=== PATIENT | male | born 1955 | race Caucasian/White ===

== ENCOUNTER 2017-03-22 08:33 | Emergency (ER) | payer SELFPAY ==
[2017-03-22 09:09] VITALS: BP 156/94
[2017-03-22] MEDS ORDERED: Tetan/Diph/Pertus SYR(Tdap)* 0.5 ML SYR(BOOSTRIX) use SYR IM ONE (10:04)
--- NOTE | 2017-03-22 10:06 | UC ---
Hand/Wrist HPI - HPI Summary HPI Summary: PW to right 2nd and 3rd fingers a few weeks ago-now feels tender and swollen no fevers or chills, does feel swollen and feels like ROM is limited due to eduema - History Of Current Complaint Chief Complaint: UCUpperExtremity Stated Complaint: FINGERS INJURY WC Time Seen by Provider: 03/22/17 09:55 Hx Obtained From: Patient ?: No Mechanism Of Injury: ?PW on a stainless steel brush Onset/Duration: Gradual Onset, Lasting Weeks - 2 Severity Initially: Mild Severity Currently: Mild Pain Intensity: 2 Character Of Pain: Throbbing Aggravating Factor(s): Movement Alleviating Factor(s): Nothing Associated Signs And Symptoms: Positive: Swelling Related History: Occupational Injury, Dominant Hand Right - Allergies/Home Medications Allergies/Adverse Reactions: Allergies Allergy/AdvReac Type Severity Reaction Status Date / Time Penicillins Allergy Red at Verified 03/22/17 09:55 Injection Site Home Medications: Home Medications Bp Med 1 03/22/17 [History] PMH/Surg Hx/FS Hx/Imm Hx Previously Healthy: No Cardiovascular History: Hypertension - Surgical History Surgical History: None - Family History Known Family History: Positive: None - Social History Occupation: Employed Full-time Lives: With Family Alcohol Use: Weekly Substance Use Type: None Smoking Status (MU): Never Smoked Tobacco Review of Systems Constitutional: Negative Skin: Negative Eyes: Negative ENT: Negative Respiratory: Negative Cardiovascular: Negative Gastrointestinal: Negative Genitourinary: Negative Motor: Decreased ROM - slight due to swelling index and middle finger right hand Neurovascular: Negative Musculoskeletal: Arthralgia, Edema Neurological: Negative Psychological: Negative Is Patient Immunocompromised?: No All Other Systems Reviewed And Are Negative: Yes Physical Exam Triage Information Reviewed: Yes Appearance: Well-Appearing, No Pain Distress, Well-Nourished Vital Signs: Initial Vital Signs Temp 97.9 F 03/22/17 09:06 Pulse 72 03/22/17 09:06 Resp 18 03/22/17 09:06 BP 156/94 03/22/17 09:06 Pulse Ox 98 03/22/17 09:06 Vital Signs Reviewed: Yes Eye Exam: Normal Eyes: Positive: Conjunctiva Clear ENT Exam: Normal ENT: Positive: Normal ENT inspection, Hearing grossly normal. Negative: Nasal drainage, Trismus, Muffled voice, Hoarse voice Dental Exam: Normal Neck exam: Normal Neck: Positive: Supple, Nontender, No Lymphadenopathy Respiratory Exam: Normal Respiratory: Positive: Chest non-tender, No respiratory distress, No accessory muscle use Cardiovascular Exam: Normal Cardiovascular: Positive: RRR, Pulses Normal, Brisk Capillary Refill Musculoskeletal Exam: Normal Musculoskeletal: Positive: Strength Intact, ROM Intact, No Edema Neurological Exam: Normal Neurological: Positive: Alert, Muscle Tone Normal Psychological Exam: Normal Skin Exam: Normal Diagnostics - Radiology No standard instances Xray Interpretation: Positive (See Comments) - FB times 2 in right index finger with soft tissue swelling Radiology Interpretation Completed By: Radiologist Hand/Wrist Course/Dx - Course Course Of Treatment: warm compress, augmentin, up date tetanus follow BP with PCP, Follow FB/PW with - Differential Dx/Diagnosis Provider Diagnoses: FB/PW Swelling right index and middle finger, Poorly controlled hypertension, Up date Tetanus Discharge - Discharge Plan Condition: Stable Disposition: HOME Prescriptions: Amoxicillin/Clavulanate TAB* [Augmentin TAB 875*] 875 mg PO BID #20 tab Patient Education Materials: Soft Tissue Foreign Body (ED), Puncture Wound (ED) , Hypertension (ED), Warm Compress or Soak (ED) Forms: *Work Release Referrals: Kan Fernández MD [Primary Care Provider] - 2 Weeks Stefanie Truong MD [Medical Doctor] - 4 Days
--- NOTE | 2017-03-22 10:33 | RAD ---
HISTORY: Hand injury, swelling second and third digits COMPARISONS: None VIEWS: 4, Frontal, lateral, and oblique views of the right hand FINDINGS: BONE DENSITY: Normal. BONES: There is no displaced fracture. There is no appreciable erosion or periosteal reaction. 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 ALIGNMENT: There is no dislocation. SOFT TISSUES: There is soft tissue swelling along the second digit. There is a linear radiopaque foreign body measuring 0.1 cm located in the soft tissues along the radial aspect and volar aspect of the base of the middle facet of the second digit. There is a punctate radiopaque foreign body in the soft tissues along the tuft of the distal phalanx of the second digit. OTHER FINDINGS: None. IMPRESSION: 1. THERE ARE SMALL RADIOPAQUE FOREIGN BODIES ALONG THE SOFT TISSUES OF THE SECOND DIGIT DESCRIBED ABOVE. 2. THERE IS NO APPRECIABLE EROSION OR PERIOSTEAL REACTION. PLAIN FILM FINDINGS OF OSTEOMYELITIS ARE RELATIVELY LATE FINDINGS. IF THERE IS PERSISTENT CLINICAL CONCERN FOR OSTEOMYELITIS, RECOMMEND CORRELATION WITH FOLLOWUP IMAGING, THREE-PHASE BONE SCANNING, WHITE BLOOD CELL SCAN, AND/OR MRI OF THE AFFECTED REGION.
== END 2017-03-22 10:55 | disposition home or self-care (01) ==
LOC: UCEAST 08:33
DX: S60.450A Superficial foreign body of right index finger, initial encounter (principal); S60.452A Superficial foreign body of right middle finger, initial encounter; I10 Essential (primary) hypertension; X58.XXXA Exposure to other specified factors, initial encounter; Y92.9 Unspecified place or not applicable
CPT/HCPCS: 90471; 90715; 99202; G0463